=== PATIENT | male | born 1970 | race Caucasian/White ===

== ENCOUNTER 2018-10-02 13:55 | Observation (INO) ==
[2018-10-02] MEDS ORDERED: 0.9 % Sodium Chloride 1,000 ML IVC ONE (14:16)
[2018-10-02 14:40] LABS: Basophils % 0.4 %; Eosinophils # 0.1 K/mcL (0.0-0.6); Eosinophils % 1.2 %; Hematocrit 45.1 % (37.5-50.1); Hemoglobin 15.3 g/dL (12.9-16.9); Immature Granulocytes % 0.3 % (0-4); Lymphocytes # 1.9 K/mcL (0.6-4.6); Lymphocytes % 18.4 %; Mean Corpuscular HGB Conc 33.9 g/dL (31.6-35.5); Mean Corpuscular Hemoglobin 30.1 pg (28.0-33.3); Mean Corpuscular Volume 88.6 fL (83.0-100.0); Mean Platelet Volume 11.1 fL (9.4-12.4); Monocytes # 0.8 K/mcL (0.0-1.3); Monocytes % 7.3 %; Neutrophils # 7.6 K/mcL (1.6-8.9); Platelet Count 216 K/mcL (140-400); Red Blood Count 5.09 M/mcL (4.19-5.50); Segmented Neutrophils % 72.4 %; White Blood Count 10.5 K/mcL (4.3-11.1)
[2018-10-02 15:00] LABS: Alanine Aminotransferase 50 Units/L (7-52); Albumin 4.6 g/dL (3.5-5.7); Albumin/Globulin Ratio 1.5 (1.1-2.2); Alkaline Phosphatase 68 Units/L (34-104); Aspartate Amino Transferase 45 Units/L (13-39); BUN/Creatinine Ratio 20 (6-26); Bilirubin,Direct 0.2 mg/dL (0.0-0.2); Bilirubin,Indirect 0.7 mg/dL (0.0-1.2); Bilirubin,Total 0.9 mg/dL (0.3-1.0); Blood Urea Nitrogen 15 mg/dL (6-20); Calcium 9.6 mg/dL (8.6-10.3); Carbon Dioxide 24 mEq/L (23-29); Chloride 103 mEq/L (98-107); Ethanol < 10 mg/dL (Less than 10); Glucose 97 mg/dL (70-105); Lipase 25 Units/L (11-82); Osmolality,Calculated 287 (280-300); Potassium 3.6 mEq/L (3.5-5.1); Sodium 138 mEq/L (136-145); Total Protein 7.6 g/dL (6.4-8.9); eGFR For African Americans > 60 (> 60); eGFR For Non-African Americans > 60 (> 60)
[2018-10-02] MEDS ORDERED: *HR* LORazepam 2 MG/ML VIAL IVP ONE (15:28)
[2018-10-02] MEDS ORDERED: *HR* LORazepam 2 MG/ML VIAL IVP STA (15:47)
[2018-10-02 15:48] LABS: Acetaminophen < 10 mcg/mL (10-20); Salicylate < 2.5 mg/dL (15.0-30.0)
[2018-10-02] MEDS ORDERED: Naloxone 0.4 MG/ML INJ IVP PRN (16:52)
[2018-10-02] MEDS ORDERED: Ondansetron 4 MG/2 ML VIAL IVP PRN (16:52)
[2018-10-02] MEDS ORDERED: *HR* LORazepam 2 MG/ML VIAL IVP PRN ×2 (16:57)
[2018-10-02 17:26] LABS: Amphetamine Screen,Urine Positive ng/mL (Cutoff=1000); Barbiturate Screen,Urine Negative ng/mL (Cutoff=200); Benzodiazepines Screen,Urine Negative ng/mL (Cutoff=200); Cannabinoid Screen,Urine Positive ng/mL (Cutoff = 50); Cocaine Screen,Urine Negative ng/mL (Cutoff= 300); Opiate Screen,Urine Negative ng/mL (Cutoff=300); Phencyclidine Screen,Urine Negative ng/mL (Cutoff=25)
[2018-10-02] MEDS ORDERED: Thiamine (B-1) 100 MG, Folic Acid 1 MG, MVI, adult with vitamin K 10 ML in 0.9 % Sodi... IVPB SCH (18:00)
[2018-10-02] MEDS: *HR* Heparin 5,000 UNIT/ML VIAL SQ SCH (18:08)
[2018-10-02] MEDS: Ipratropium/Albuterol Neb 3 ML IH SCH ×2 (18:38→22:07)
[2018-10-02] MEDS: Divalproex (24 HR) 500 MG TABLET PO SCH (21:51)
[2018-10-03] MEDS: Ipratropium/Albuterol Neb 3 ML IH SCH ×2 (03:22→11:15)
[2018-10-03] MEDS: *HR* Heparin 5,000 UNIT/ML VIAL SQ SCH ×2 (05:30→18:12)
[2018-10-03] MEDS: amLODIPine 5 MG TABLET PO SCH (09:05)
[2018-10-03] MEDS: Folic Acid 1 MG TABLET PO SCH (09:05)
[2018-10-03] MEDS: (Brexpiprazole [Rexulti] 2 MG) PO SCH (09:05)
[2018-10-03] MEDS: Nicotine 21 MG PATCH.TD24 TD SCH (11:07)
[2018-10-03] MEDS ORDERED: Dextrose Gel 15 GM/37.5 ML TUBE PO PRN ×2 (13:46)
[2018-10-03] MEDS ORDERED: *HR* Dextrose 50 % in Water (Syg) 50 ML SYRINGE IVP PRN (13:46)
[2018-10-03] MEDS ORDERED: D5% in Water 1,000 ML IVC PRN (13:46)
[2018-10-03] MEDS ORDERED: Ipratropium/Albuterol Neb 3 ML IH PRN (15:19)
[2018-10-03 16:48] LABS: Estimated Average Glucose 123 mg/dl
[2018-10-03] MEDS: Insulin LISPRO 300 UNITS/3 ML VIAL SQ SCH (18:11)
[2018-10-03] MEDS: Gabapentin 400 MG CAPSULE PO SCH ×2 (18:12→21:33)
[2018-10-03] MEDS ORDERED: risperiDONE 1 MG TABLET PO SCH (21:00)
[2018-10-03] MEDS ORDERED: traZODone 50 MG TABLET PO SCH (21:00)
[2018-10-03] MEDS ORDERED: Insulin LISPRO 300 UNITS/3 ML VIAL SQ SCH (21:00)
[2018-10-03] MEDS: Divalproex (24 HR) 500 MG TABLET PO SCH (21:32)
[2018-10-04 03:47] LABS: Hematocrit 43.4 % (37.5-50.1); Hemoglobin 14.5 g/dL (12.9-16.9); Mean Corpuscular HGB Conc 33.4 g/dL (31.6-35.5); Mean Corpuscular Hemoglobin 30.1 pg (28.0-33.3); Mean Corpuscular Volume 90.2 fL (83.0-100.0); Mean Platelet Volume 11.8 fL (9.4-12.4); Platelet Count 171 K/mcL (140-400); Red Blood Count 4.81 M/mcL (4.19-5.50); Red Cell Distribution Width 14.9 % (11.5-14.5); White Blood Count 6.7 K/mcL (4.3-11.1)
[2018-10-04 04:05] LABS: Alanine Aminotransferase 35 Units/L (7-52); Albumin 3.9 g/dL (3.5-5.7); Albumin/Globulin Ratio 1.5 (1.1-2.2); Alkaline Phosphatase 57 Units/L (34-104); Aspartate Amino Transferase 25 Units/L (13-39); BUN/Creatinine Ratio 12 (6-26); Bilirubin,Total 0.5 mg/dL (0.3-1.0); Blood Urea Nitrogen 9 mg/dL (6-20); Carbon Dioxide 25 mEq/L (23-29); Chloride 106 mEq/L (98-107); Globulin 2.6 g/dL (2.4-3.5); Glucose 97 mg/dL (70-105); Osmolality,Calculated 287 (280-300); Potassium 3.9 mEq/L (3.5-5.1); Sodium 139 mEq/L (136-145); Total Protein 6.5 g/dL (6.4-8.9); eGFR For African Americans > 60 (> 60); eGFR For Non-African Americans > 60 (> 60)
[2018-10-04] MEDS: *HR* Heparin 5,000 UNIT/ML VIAL SQ SCH (06:44)
[2018-10-04] MEDS ORDERED: Venlafaxine XR (24 HR) 75 MG CAP.ER.24H PO SCH (09:00)
[2018-10-04] MEDS ORDERED: Fluticasone Propionate Nasal 50 MCG/SPRAY BOTTLE NS SCH (09:00)
[2018-10-04] MEDS: Insulin LISPRO 300 UNITS/3 ML VIAL SQ SCH (09:36)
[2018-10-04] MEDS: (Brexpiprazole [Rexulti] 2 MG) PO SCH (09:36)
[2018-10-04] MEDS: amLODIPine 5 MG TABLET PO SCH (09:37)
[2018-10-04] MEDS: Gabapentin 400 MG CAPSULE PO SCH (09:37)
[2018-10-04] MEDS: Nicotine 21 MG PATCH.TD24 TD SCH (09:38)
[2018-10-04] MEDS: Folic Acid 1 MG TABLET PO SCH (09:38)
[2018-10-04 10:27] VITALS: BP 116/68
== END 2018-10-04 12:19 | disposition home or self-care (01) ==
LOC: EMEROOARM 13:55 → 3BNU 13:55 → SUATTDRO 16:33 → 3BNU 17:25
PROVIDERS: ADMIT Internal Medicine; ATTEND Family Medicine